=== PATIENT | female | born 2000 | race African-American/Black ===

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

== ENCOUNTER 2020-11-27 07:59 | Observation (INO) | payer MEDICAID, OTHER ==
[~2020-11-27] VITALS: Ht 154.9 cm; Wt 66.5 kg
--- NOTE | 2020-11-27 08:10 | NUR ---
PT AMBULATORY TO BR FOR URINE SAMPLE & BACK TO ROOM W/O INCIDENCE. PT C/O RLQ PAIN WITH NAUSEA, DENIES PAINFUL URINATION. PT CHANGED INTO GOWN, CONNECTED TO MONITORS. CALL LIGHT WITHIN REACH
--- NOTE | 2020-11-27 08:15 | NUR ---
PA AT BS
[2020-11-27] MEDS ORDERED: ONDANSETRON 2MG/ML, 2ML ONE (08:20)
--- NOTE | 2020-11-27 08:29 | NUR ---
PIV PLACED, LABS DRAWN, PT MEDICATED PER EMAR. CALL LIGHT WITHIN REACH. NADN/VSS. BED IN LOWEST POSITION
[2020-11-27] MEDS ORDERED: ONDANSETRON 2MG/ML, 2ML IVPush ONE (08:30)
[2020-11-27] MEDS ORDERED: SODIUM CHLORIDE 0.9% 1,000ML IVBOLUS ONE (08:30)
[2020-11-27 08:36] LABS: MICROSCOPIC AUTO
[2020-11-27 08:40] LABS: BASOPHILS % (AUTO) 0 % (0-1); EOSINOPHILS % (AUTO) 1 % (1-7); LYMPHOCYTES % (AUTO) 31 % (22-44); MEAN CORPUSCULAR HEMOGLOBIN 28.8 pg (27.0-34.8); MEAN CORPUSCULAR HGB CONC 33.3 g/dL (32.4-35.8); MEAN PLATELET VOLUME 7.6 fL (7.4-10.4); MONOCYTES % (AUTO) 9 % (2-9); NEUTROPHILS % (AUTO) 59 % (42-75); PLATELET COUNT 263 x10^3/uL (130-400); RED BLOOD COUNT 4.48 x10^6/uL (3.82-5.3); RED CELL DISTRIBUTION WIDTH 13.9 % (9.6-15.2)
[2020-11-27 08:47] LABS: ALANINE AMINOTRANSFERASE 34 U/L (12-78); ALBUMIN 4.3 g/dL (3.4-5.0); ANION GAP 4 mmol/L (5-15); CALCIUM 8.7 mg/dL (8.5-10.1); CHLORIDE 109 mmol/L (98-107); CREATININE 0.73 mg/dL (0.55-1.02)
[2020-11-27 08:52] LABS: ALKALINE PHOSPHATASE 66 U/L (45-117); BILIRUBIN,TOTAL 0.3 mg/dL (0.2-1.0)
[2020-11-27] MEDS ORDERED: MORPHINE SULFATE 4 MG/ML, 1ML ONE (08:56)
[2020-11-27] MEDS ORDERED: POTASSIUM CHLORIDE 20 MEQ TAB.ER.PRT ONE (08:56)
[2020-11-27] MEDS ORDERED: POTASSIUM CHLORIDE 20 MEQ TAB.ER.PRT PO ONE (09:00)
[2020-11-27] MEDS ORDERED: POTASSIUM CHLORIDE 40 MEQ in SODIUM CHLORIDE 0.9% 500 ML IV ONE (09:00)
[2020-11-27] MEDS ORDERED: MORPHINE SULFATE 4 MG/ML, 1ML IVPush PRN (09:00)
--- NOTE | 2020-11-27 09:55 | NUR ---
Patient is resting comfortably in bed. Bed in lowest, rails engaged, call light on lap. Vital Signs within normal limits. WCTM.
[2020-11-27] MEDS ORDERED: OMNIPAQUE 350 MG/ML, 100ML BOTTLE ONE (10:15)
--- NOTE | 2020-11-27 10:17 | NUR ---
PT TO CT
--- NOTE | 2020-11-27 10:29 | NUR ---
PT BACK FROM CT
[2020-11-27] MEDS ORDERED: HYDROmorphone 2 MG/ML, 1ML ONE (11:36)
--- NOTE | 2020-11-27 11:39 | NUR ---
ULTRASOUND AT BS, PT MEDICATED PER EMAR. NADN/VSS. CALL LIGHT WITHIN REACH
[2020-11-27] MEDS ORDERED: HYDROmorphone 1 MG/ML, 1ML INJ IV ONE (12:00)
--- NOTE | 2020-11-27 12:40 | NUR ---
Patient is resting comfortably in bed. Bed in lowest, rails engaged, call light on lap. Vital Signs within normal limits. WCTM. NO NEEDS AT THIS TIME
--- NOTE | 2020-11-27 13:45 | NUR ---
Pt to be admitted to ONC, room 441. Report called to [employer].
[2020-11-27] MEDS: LACTATED RINGERS 1,000 ML IV SCH (15:00)
[2020-11-27] MEDS ORDERED: morphine SULFATE 10 MG/ML, 1ML IVPush PRN (15:30)
[2020-11-27] MEDS ORDERED: ACETAMINOPHEN 325 MG TABLET PO PRN (15:30)
[2020-11-27] MEDS ORDERED: IBUPROFEN 600 MG TABLET PO PRN (15:30)
[2020-11-27] MEDS ORDERED: KETOROLAC 30 MG/1 ML IV PRN (15:30)
[2020-11-27] MEDS ORDERED: OXYcodone IR 5MG TABLET PO PRN (15:30)
[2020-11-27] MEDS ORDERED: ONDANSETRON 2MG/ML, 2ML IVPush PRN (15:30)
[2020-11-27] MEDS ORDERED: ONDANSETRON ODT 4 MG PO PRN (15:30)
[2020-11-27 15:48] VITALS: BP 99/68
[2020-11-27 16:06] VITALS: BP 99/68
[2020-11-27 18:58] VITALS: BP 107/71
[2020-11-28] MEDS: LACTATED RINGERS 1,000 ML IV SCH (00:14)
[2020-11-28 00:22] VITALS: BP 108/70
[2020-11-28 05:17] LABS: BASOPHILS % (AUTO) 0 % (0-1); EOSINOPHILS % (AUTO) 1 % (1-7); LYMPHOCYTES % (AUTO) 30 % (22-44); MEAN CORPUSCULAR HEMOGLOBIN 29.1 pg (27.0-34.8); MEAN CORPUSCULAR HGB CONC 33.5 g/dL (32.4-35.8); MEAN PLATELET VOLUME 8.1 fL (7.4-10.4); MONOCYTES % (AUTO) 9 % (2-9); NEUTROPHILS % (AUTO) 60 % (42-75); PLATELET COUNT 215 x10^3/uL (130-400); RED BLOOD COUNT 3.91 x10^6/uL (3.82-5.3); RED CELL DISTRIBUTION WIDTH 14.2 % (9.6-15.2)
[2020-11-28 05:23] LABS: CHLORIDE 106 mmol/L (98-107)
[2020-11-28 05:30] LABS: ALANINE AMINOTRANSFERASE 27 U/L (12-78); ALBUMIN 3.1 g/dL (3.4-5.0); ALKALINE PHOSPHATASE 52 U/L (45-117); ANION GAP 6 mmol/L (5-15); BILIRUBIN,TOTAL 0.3 mg/dL (0.2-1.0); CALCIUM 8.5 mg/dL (8.5-10.1); CREATININE 0.64 mg/dL (0.55-1.02); TOTAL PROTEIN 6.4 g/dL (6.4-8.2)
[2020-11-28 07:26] VITALS: BP 121/75
== END 2020-11-28 16:39 | disposition home or self-care (01) ==
LOC: ED 08:52 → INTOOBSV 12:08 → EDIP 12:08 → 4NW 14:26 → DCLOUNGE 11-28 10:45 → 4NW 11-28 10:53
PROVIDERS: ADMIT Hospitalist; ATTEND Hospitalist
DX: R10.11 Right upper quadrant pain (principal); E87.6 Hypokalemia; E86.0 Dehydration; Z79.899 Other long term (current) drug therapy
CPT/HCPCS: 36415; 74177; 76700; 80053; 80074; 81001; 83735; 84703; 85025; 93005; 96361; 96365; 96366; 96375; 99285; G0378; J1170; J1885; J2270; J2405; J3480; J7030; J7040; J7120; Q9967